=== PATIENT | male | born 1955 | race Caucasian/White ===

== ENCOUNTER 2017-05-07 08:00 | Day surgery (SDC) | payer MEDICAID ==
[~2017-05-07 08:00] MED LIST: Lactated Ringers 1,000 ML IV SCH; ceFAZolin 2 GM in Premix Bag 1 BAG IV SCH
--- NOTE | 2017-05-07 08:23 | PCM.PREANE ---
Preanesthetic Assessment - Anesthesia/Transfusion/Family Hx Anesthesia History: Prior Anesthesia Without Reaction Family History of Anesthesia Reaction: No Transfusion History: No Prior Transfusion(s) Intubation History: Unknown - Review of Systems General: No Symptoms Pulmonary: No Symptoms Cardiovascular: No Symptoms Gastrointestinal: No Symptoms Neurological: No Symptoms Other: Reports: None - Physical Assessment Height: 1.78 m Weight: 108.409 kg ASA Class: 2 Mental Status: Alert & Oriented x3 Airway Class: Mallampati = 2 Dentition: Reports: Normal Dentition, Broken Tooth/Teeth (few) Thyro-Mental Finger Breadths: 2 Mouth Opening Finger Breadths: 3 ROM/Head Extension: Full Lungs: Clear to Auscultation, Normal Respiratory Effort Cardiovascular: Regular Rate, Regular Rhythm - Allergies Allergies/Adverse Reactions: Allergies Allergy/AdvReac Type Severity Reaction Status Date / Time No Known Allergies Allergy Verified 05/02/17 16:16 - Blood Blood Available: No - Anesthesia Plan Pre-Op Medication Ordered: None - Acknowledgements Anesthesia Type Planned: General Anesthesia Pt an Appropriate Candidate for the Planned Anesthesia: Yes Alternatives and Risks of Anesthesia Discussed w Pt/Guardian: Yes Pt/Guardian Understands and Agrees with Anesthesia Plan: Yes PreAnesthesia Questionnaire Other HEENT History: wears glasses Cardiovascular History: Reports: Hypertension, Other (See Below) (low HDL) Endocrine/Metabolic History: Reports: Diabetes, Type II, Obesity/BMI 30+ Dermatologic History: Reports: Psoriasis - Past Surgical History GI Surgical History: Reports: Other (See Below) Other GI Surgeries/Procedures: Umbilical Hernia Repair [address] Diaz - SUBSTANCE USE Tobacco Use Within Last Twelve Months: Smokeless Tobacco (chew) Recreational Drug Use History: No - HOME MEDS Home Medications: Home Meds Metoprolol Tartrate 100 mg PO BID 05/02/17 [History] [place]-3/DHA/Epa/Fish Oil [[place]-3 Fish Oil 1,000 MG Sfgl] 2,000 mg PO BID [History] metFORMIN HCl [Metformin HCl] 500 mg PO BIDMEALS 05/02/17 [History] - CURRENT (IN HOUSE) MEDS Current Meds: Current Medications Cefazolin Sodium/Dextrose 2 gm (/ Premix) 50 mls @ 100 mls/hr IV ONETIME YOHANNES Lactated Ringer's (Ringers, Lactated) 1,000 mls @ 125 mls/hr IV ASDIRECTED YOHANNES
[2017-05-07] MEDS ORDERED: fentaNYL 250 MCG/5 ML SDV ONE (08:31)
[2017-05-07] MEDS ORDERED: Propofol 200 MG/20 ML SDV ONE (08:31)
[2017-05-07] MEDS ORDERED: Midazolam 1 MG/ML 2 ML SDV ONE (08:31)
[2017-05-07] MEDS ORDERED: Lidocaine 2% 5 ML SDV ONE (08:31)
[2017-05-07] MEDS ORDERED: Bupivacaine 0.5% 30 ML SDV ONE (09:23)
[2017-05-07] MEDS ORDERED: ceFAZolin 1 GM Vial ONE (09:23)
[2017-05-07] MEDS ORDERED: Bupivacaine 0.5% 10 ML SDV ONE (09:41)
[2017-05-07] MEDS ORDERED: Neostigmine Methylsulfate 1 MG/ML 5 ML Syringe ONE (10:00)
[2017-05-07] MEDS ORDERED: Glycopyrrolate 0.2 MG/ML SDV ONE (10:00)
[2017-05-07] MEDS ORDERED: ePHEDrine 50 MG/ML SDV ONE (10:02)
[2017-05-07] MEDS ORDERED: Sugammadex Sodium 200 MG/2 ML VIAL ONE (11:01)
[2017-05-07] MEDS ORDERED: Acetaminophen/HYDROcodone 325-5 MG Tab PO PRN (11:07)
[2017-05-07] MEDS ORDERED: Ondansetron 4 MG/2 ML SDV IVPUSH PRN (11:07)
[2017-05-07] MEDS ORDERED: Morphine 10 MG/ML Syringe IVPUSH PRN (11:07)
--- NOTE | 2017-05-07 11:14 | PCM.OPNOTE ---
- General Post-Op/Procedure Note Date of Surgery/Procedure: 05/07/17 Operative Procedure(s): Repair incarcerated ventral hernia with 8.4 cm Ventralex mesh Pre Op Diagnosis: Incarcerated ventral hernia Post-Op Diagnosis: Same Anesthesia Technique: General ET Tube (ASA II) Primary Surgeon: Braden Shukla Fluid Replacement, Intraop: 1,800 EBL in mLs: 10 Condition: Good Free Text/Narrative:: Dictation [id number] CPT CODE 58191/19392
[2017-05-07] MEDS ORDERED: fentaNYL 100 MCG/2 ML SDV IVPUSH PRN (11:15)
[2017-05-07] MEDS ORDERED: Lactated Ringers 1,000 ML IV SCH (11:15)
--- NOTE | 2017-05-07 12:11 | OR ---
SURGEON: Braden Shukla M.D. DATE OF PROCEDURE: 05/07/2017 OPERATION PERFORMED: Repair of incarcerated ventral hernia with 8.4 cm Ventralex mesh. ANESTHESIA: General endotracheal ASA CLASSIFICATION: II. PREOPERATIVE DIAGNOSIS: Incarcerated ventral hernia. POSTOPERATIVE DIAGNOSIS: Incarcerated ventral hernia. ESTIMATED BLOOD LOSS: 10 mL. INTRAOPERATIVE FLUID REPLACEMENT: 1800 mL of crystalloid. DESCRIPTION OF PROCEDURE: The patient was taken to the operating room and placed on the operating table in the supine position. Time-out was called for appropriate identification of the patient and procedure. Thigh-high TEDs and sequential compression boots were placed. Following satisfactory attainment of general endotracheal anesthesia, the abdomen was prepped with DuraPrep solution and sterile drapes were applied. The skin just above the umbilicus was infiltrated with 10 mL of 0.5% Marcaine solution. The skin incision was then made and deepened through the subcutaneous tissue obtaining hemostasis with the use of electrocautery. The hernia sac was readily apparent in the subcutaneous tissue and dissection was carried out around the hernia sac. We did enter the hernia sac and it did require excision. The excess hernia sac was excised using a combination of sharp dissection and electrocautery. There were no intraabdominal adhesions known. An 8.4 cm Ventralex mesh was brought to the operating table and soaked in 1% Ancef solution. This was placed in an underlay technique and secured to the fascia with interrupted horizontal mattress 0 Ethibond sutures. All sutures were placed under direct vision and held with hemostats. Once all sutures had been placed, they were secured. The patient was given a Valsalva maneuver to 50 cm of water and the repair was solid. The wound was then irrigated with 1% Ancef solution. The fascia was reapproximated over the mesh again with interrupted 0 Ethibond sutures. The wound was inspected for hemostasis and small bleeding sites were electrocoagulated. The subcutaneous tissue was reapproximated with running 3-0 Polysorb. The skin was then closed with subcuticular 4-0 Monocryl, reinforced with Steri-Strips. Sterile Tegaderm pad was placed as a dressing. Sponge, needle, and instrument counts were all correct. Following emergence from anesthesia and extubation, the patient was taken to recovery room in stable condition. CASH / CONI /[id number]
--- NOTE | 2017-05-07 13:02 | PCM48HPAN ---
Post Anesthesia Note - EVALUATION WITHIN 48HRS OF ANESTHETIC Vital Signs in Normal Range: Yes Patient Participated in Evaluation: Yes Respiratory Function Stable: Yes Airway Patent: Yes Cardiovascular Function Stable: Yes Hydration Status Stable: Yes Pain Control Satisfactory: Yes Nausea and Vomiting Control Satisfactory: Yes Mental Status Recovered: Yes Resp Rate: 15 - COMMENTS/OBSERVATIONS Free Text/Narrative:: no anesthesia problems
== END 2017-05-07 13:10 | disposition home or self-care (01) ==
LOC: MW.SDS 08:00
PROVIDERS: ATTEND Surgery
DX: K43.0 Incisional hernia with obstruction, without gangrene (principal); I10 Essential (primary) hypertension; E11.9 Type 2 diabetes mellitus without complications; N52.9 Male erectile dysfunction, unspecified; E78.6 Lipoprotein deficiency; E66.01 Morbid (severe) obesity due to excess calories; R35.1 Nocturia; F17.220 Nicotine dependence, chewing tobacco, uncomplicated; Z79.899 Other long term (current) drug therapy; Z79.84 Long term (current) use of oral hypoglycemic drugs; Z68.34 Body mass index [BMI] 34.0-34.9, adult; Z98.890 Other specified postprocedural states
CPT/HCPCS: 49566; 49568; A9270; C9399; J0690; J2250; J3010; J7120; 00830; 88302; C1781; J2704; J3490

== ENCOUNTER 2017-12-21 09:03 | Day surgery (SDC) | payer MEDICAID ==
[~2017-12-21 09:03] MED LIST changes: +Lidocaine 2% 5 ML SDV ONE; +Propofol 200 MG/20 ML SDV ONE; -ceFAZolin 2 GM in Premix Bag 1 BAG IV SCH
--- NOTE | 2017-12-21 10:22 | PCM.PREANE ---
Preanesthetic Assessment - Anesthesia/Transfusion/Family Hx Anesthesia History: Prior Anesthesia Without Reaction Family History of Anesthesia Reaction: No Transfusion History: No Prior Transfusion(s) Intubation History: Unknown - Review of Systems General: No Symptoms Pulmonary: No Symptoms Cardiovascular: No Symptoms Gastrointestinal: No Symptoms Neurological: No Symptoms - Physical Assessment O2 Sat by Pulse Oximetry: 95 Respiratory Rate: 16 Vital Signs: Last Vital Signs Temp 36.4 C 12/21/17 09:30 Pulse 48 L 12/21/17 09:30 Resp 16 12/21/17 09:30 BP 149/84 H 12/21/17 09:30 Pulse Ox 95 12/21/17 09:30 Height: 1.78 m Weight: 114.305 kg ASA Class: 2 Mental Status: Alert & Oriented x3 Airway Class: Mallampati = 1 Dentition: Reports: Normal Dentition Lungs: Clear to Auscultation, Normal Respiratory Effort Cardiovascular: Regular Rate, Regular Rhythm - Allergies Allergies/Adverse Reactions: Allergies Allergy/AdvReac Type Severity Reaction Status Date / Time No Known Allergies Allergy Verified 12/19/17 07:38 - Anesthesia Plan Pre-Op Medication Ordered: None - Acknowledgements Anesthesia Type Planned: MAC Pt an Appropriate Candidate for the Planned Anesthesia: Yes Alternatives and Risks of Anesthesia Discussed w Pt/Guardian: Yes Pt/Guardian Understands and Agrees with Anesthesia Plan: Yes Additional Comments: PMH: htn, dm2, smoker PreAnesthesia Questionnaire HEENT History: Reports: Other (See Below) Other HEENT History: wears glasses Cardiovascular History: Reports: Hypertension Gastrointestinal History: Reports: None Genitourinary History: Reports: BPH Endocrine/Metabolic History: Reports: Diabetes, Type II, Obesity/BMI 30+ Dermatologic History: Reports: Psoriasis - Past Surgical History Head Surgeries/Procedures: Reports: None GI Surgical History: Reports: Other (See Below) Other GI Surgeries/Procedures: Umbilical Hernia Repair x2 - SUBSTANCE USE Smoking Status *Q: Never Smoker Recreational Drug Use History: No - HOME MEDS Home Medications: Home Meds Metoprolol Tartrate 100 mg PO BID 05/02/17 [History] [place]-3/DHA/Epa/Fish Oil [[place]-3 Fish Oil 1,000 MG Sfgl] 2,000 mg PO BID [History] metFORMIN HCl [Metformin HCl] 500 mg PO DAILY 05/02/17 [History] Docusate Sodium [Stool Softener] 1 tab PO BID PRN 12/19/17 [History] - CURRENT (IN HOUSE) MEDS Current Meds: Current Medications Lactated Ringer's (Ringers, Lactated) 1,000 mls @ 125 mls/hr IV ASDIRECTED YOHANNES Discontinued Medications Lidocaine (Xylocaine-Mpf 2%) Confirm Administered Dose 5 ml .ROUTE .STK-MED ONE Stop: 12/21/17 07:46 Propofol (Diprivan 20 Ml) Confirm Administered Dose 400 mg .ROUTE .STK-MED ONE Stop: 12/21/17 07:46
--- NOTE | 2017-12-21 12:59 | PCM.OPNOTE ---
- General Post-Op/Procedure Note Date of Surgery/Procedure: 12/21/17 Operative Procedure(s): Colonoscopy with cecal biopsy Pre Op Diagnosis: Desire for colorectal cancer screening Post-Op Diagnosis: Nonspecific inflammatory changes in the cecum. Internal hemorrhoids. Anesthesia Technique: MAC (ASA II) Primary Surgeon: Braden Shukla Condition: Good Free Text/Narrative:: DICTATION [id number] CPT CODE [id number]
[2017-12-21] MEDS ORDERED: Lactated Ringers 1,000 ML IV SCH (13:00)
--- NOTE | 2017-12-21 13:41 | OR ---
SURGEON: Braden Shukla M.D. DATE OF PROCEDURE: 12/21/2017 OPERATION PERFORMED: Colonoscopy with cecal biopsy. ANESTHESIA: MAC. ASA CLASSIFICATION: II. PREOPERATIVE DIAGNOSIS: Desire for colorectal cancer screening. POSTOPERATIVE DIAGNOSES: Nonspecific colitis in the cecum with cecal biopsy and internal hemorrhoids. DESCRIPTION OF PROCEDURE: The patient was taken to the endoscopy room and positioned on the endoscopy table in the left lateral decubitus position. Time-out was called for appropriate identification of the patient and procedure. Monitored anesthesia care was provided. The colonoscope was inserted into the rectum and advanced without difficulty to the cecum. Cecum did show some mild nonspecific inflammatory changes. Biopsies were obtained. The appendiceal orifice was visualized. The cecum was identified by internal landmarks and external pressure. The colonoscope was retroflexed to visualize the ascending colon from below, then straightened and slowly withdrawn. The cecum, ascending colon, hepatic flexure, transverse colon, splenic flexure, descending colon, sigmoid colon, and rectum were very well visualized. No tumors or polyps were identified. No diverticular changes were noted. There was no evidence of severe inflammatory bowel disease or ulcerations. Once the colonoscope was withdrawn to the rectum, it was retroflexed to visualize the anal orifice from above. Again, no tumors or polyps were seen. The patient does have internal hemorrhoids that are not actively bleeding. Please add that to the postoperative diagnosis. The colonoscope was then straightened, the rectum aspirated, and the colonoscope removed. The patient tolerated the procedure well and was taken to recovery room in stable condition. CASH NEWBERRY /[id number]
== END 2017-12-21 13:43 | disposition home or self-care (01) ==
LOC: MW.SDS 09:03
PROVIDERS: ATTEND Surgery
DX: Z12.11 Encounter for screening for malignant neoplasm of colon (principal); K52.9 Noninfective gastroenteritis and colitis, unspecified; K64.8 Other hemorrhoids; E11.9 Type 2 diabetes mellitus without complications; N52.9 Male erectile dysfunction, unspecified; I10 Essential (primary) hypertension; E66.9 Obesity, unspecified; Z68.36 Body mass index [BMI] 36.0-36.9, adult; Z79.84 Long term (current) use of oral hypoglycemic drugs; Z79.899 Other long term (current) drug therapy; Z86.010 Personal history of colon polyps
CPT/HCPCS: 45380; J2704; J7120; 00812; 88305